=== PATIENT | male | born 1955 | race American Indian/Alaskan Native ===

== ENCOUNTER 2017-12-05 07:50 | Day surgery (SDC) | payer MEDICARE ==
[2017-12-05 08:13] VITALS: BMI 26.9
[2017-12-05] MEDS ORDERED: MethylPREDNISolone Depo 40 mg/ml Inj ONE ×2 (08:16)
[2017-12-05] MEDS ORDERED: Bupivacaine HCl 0.25% PF (10 ml) Inj ONE (08:16)
[2017-12-05] MEDS ORDERED: Iohexol 240 (50 ml) ONE (08:16)
[2017-12-05] MEDS ORDERED: Lactated Ringer's 1,000 ML IV ONE (09:45)
[2017-12-05 11:13] VITALS: RESP 16; TEMP 97.4
--- NOTE | 2017-12-05 15:28 | RAD ---
PROCEDURE: Fluoroscopy pain management procedure HISTORY: LUMBAR RADICULOPATHY COMPARISON: None TECHNIQUE: Standard protocol for this study/examination. FINDINGS: Total fluoroscopic time (continuous mode) utilized during the procedure: 14.3 seconds. IMPRESSION: Submitted images from the current procedure: 6.0.
[2017-12-05 15:46] VITALS: BP 133/95; PULSE 86; O2SAT 99
--- NOTE | 2017-12-06 07:37 | OP ---
PROCEDURE DATE: 12/05/2017 PREOPERATIVE DIAGNOSES: 1. Lumbar radiculopathy. 2. Lumbar herniated disc. 3. Myalgias. POSTOPERATIVE DIAGNOSES: 1. Lumbar radiculopathy. 2. Lumbar herniated disc. 3. Myalgias. PROCEDURE: 1. Bilateral L5-S1 lumbar selective nerve root block. 2. Epidurogram. 3. Trigger point injections. X-RAY: [id number], Fluoroscopy of the spine. ANESTHESIA: MAC/local. SURGEON: Noni Villalobos MD COMPLICATIONS: None. BLOOD LOSS: 2 mL. INDICATION: This patient has intractable back and leg pain that is unresponsive to conservative management. The pain is adversely affecting quality of life and activities of daily living. TECHNIQUE: After comprehensive informed consent was obtained, the risks of the procedure explained and questions answered. The patient understands fully the risks are, but not limited to possible bleeding, infection, headache, nervous tissue injury and worsening of their pain. The patient was placed prone on the operating table in a comfortable position. Confirmation of the procedure to be performed was obtained from the patient. The skin overlying the area to be injected was cleaned in a strict sterile fashion using chlorhexidine. Sterile drapes were placed around the area to be injected. Using the C-arm in the anteroposterior view, the levels to be injected were identified under fluoroscope. Then, the C-arm was obliqued in the coronal plane until the facet joint was delineated approximately 25 degrees. The area to be injected was superficially anesthetized with 3 mL of 1% lidocaine using a 27-gauge, 1.25-inch needle. Under fluoroscopic guidance, a 22-gauge, 3.5-inch short bevel needle was advanced and directed toward the tip of the pars. In the lateral view, ideal placement of the needle was obtained with the tip in the cephalodorsal corner of the neural foramen. In the anteroposterior plane and under continuous fluoroscopy, 1 mL of non-ionic, water-soluble contrast (Omnipaque 180) was injected to visualize the nerve root and make sure there was no vascular uptake. After negative aspiration for blood, 1 mL of preservative-free 0.5% Marcaine in 80 mg of Depo-Medrol was slowly injected at each level. The patient experienced no painful paresthesia during the injection. Epidurogram: The patient underwent transforaminal epidural steroid injection today. The epidural was observed at the level of L4-L5 under AP and lateral fluoroscopic guidance. A 2 mL of Omnipaque 200 contrast was injected that evenly spread from level L3 to S1 level with posterior-anterior dye spread bilaterally at level of L4-L5 and L5-S1. There appeared to be a moderate degree spondylosis at level of L4-L5 and moderate degree of spondylosis at the level of L5-S1 with disc protrusion at the level of L4-L5. The intervertebral disc height at the level of L4-L5 was slightly less than normal and intervertebral disc height at the level of L5-S1 was well maintained. The neural foramen appeared to be patent. Good epidural dye containment from L3-S1 with intervertebral disc protrusion at the level of L4-L5, maintaining less than normal intervertebral disc height at level L4-L5. Spondylosis noted at the level of L4 through S1. Copies of the images are on file. Trigger Point Injections: A 27-gauge needle was used to inject trigger point areas in paralumbar muscles, parathoracic muscles, and upper gluteal muscles. Needle was redirected to sciatic nerve branches. Total volume of 10 mL of 0.25% Marcaine. Intermittent aspiration was done throughout with no heme or CSF aspirated throughout. Patient tolerated procedure well. DISPOSITION: Patient was taken to the recovery room in stable condition. Patient was given instructions to follow up in two weeks and was discharged in stable condition. No events or complications. Noni Villalobos MD
== END 2017-12-05 11:34 | disposition home or self-care (01) ==
LOC: C.SDS 07:50
PROVIDERS: ATTEND Anesthesiology Pain Medicine
DX: M47.817 Spondylosis without myelopathy or radiculopathy, lumbosacral region (principal); M54.16 Radiculopathy, lumbar region; M51.36 Other intervertebral disc degeneration, lumbar region; M51.16 Intervertebral disc disorders with radiculopathy, lumbar region
CPT/HCPCS: 64520; 82948; J1030; J3010; J7120; Q9966

== ENCOUNTER 2018-01-02 07:51 | Day surgery (SDC) | payer MEDICARE ==
[~2018-01-02 07:51] MED LIST: Bupivacaine HCl 0.25% PF (10 ml) Inj ONE; Iohexol 240 (50 ml) ONE; MethylPREDNISolone Depo 40 mg/ml Inj ONE
[2018-01-02] MEDS ORDERED: Propofol 10 mg/ml Inj (20 ML) ONE (09:14)
[2018-01-02] MEDS ORDERED: Midazolam 2 MG/2 ML VIAL ONE (09:15)
--- NOTE | 2018-01-02 10:33 | OP ---
PROCEDURE DATE: PREOPERATIVE DIAGNOSES: 1. Lumbar radiculopathy. 2. Lumbar herniated disc. 3. Myalgias. POSTOPERATIVE DIAGNOSES: 1. Lumbar radiculopathy. 2. Lumbar herniated disc. 3. Myalgias. PROCEDURES: 1. Selective nerve root block level L5-S1, bilateral. 2. Epidurogram. 3. Trigger point injections. X-RAY: [id number], Fluoroscopy of the spine. ANESTHESIA: MAC/local. SURGEON: Noni Villalobos MD. COMPLICATIONS: None. BLOOD LOSS: 2 mL. INDICATION: This patient has intractable back and leg pain that is unresponsive to conservative management. The pain is adversely affecting quality of life and activities of daily living. TECHNIQUE: After comprehensive informed consent was obtained, the risks of the procedure explained and questions answered. The patient understands fully the risks are, but not limited to possible bleeding, infection, headache, nervous tissue injury and worsening of their pain. The patient was placed prone on the operating table in a comfortable position. Confirmation of the procedure to be performed was obtained from the patient. The skin overlying the area to be injected was cleaned in a strict sterile fashion using chlorhexidine. Sterile drapes were placed around the area to be injected. Using the C-arm in the anteroposterior view, the levels to be injected were identified under fluoroscope. Then, the C-arm was obliqued in the coronal plane until the facet joint was delineated approximately 25 degrees. The area to be injected was superficially anesthetized with 3 mL of 1% lidocaine using a 27-gauge, 1.25-inch needle. Under fluoroscopic guidance, a 22-gauge, 3.5-inch short bevel needle was advanced and directed toward the tip of the pars. In the lateral view, ideal placement of the needle was obtained with the tip in the cephalodorsal corner of the neural foramen. In the anteroposterior plane and under continuous fluoroscopy, 1 mL of non-ionic, water-soluble contrast (Omnipaque 180) was injected to visualize the nerve root and make sure there was no vascular uptake. After negative aspiration for blood, 1 mL of preservative-free 0.5% Marcaine in 80 mg of Depo-Medrol was slowly injected at each level. The patient experienced no painful paresthesia during the injection. Epidurogram: The patient underwent transforaminal epidural steroid injection today. The epidural was observed at the level of L4-L5 under AP and lateral fluoroscopic guidance. A 2 mL of Omnipaque 200 contrast was injected that evenly spread from level L3 to S1 level with posterior-anterior dye spread bilaterally at level of L4-L5 and L5-S1. There appeared to be a moderate degree spondylosis at level of L4-L5 and moderate degree of spondylosis at the level of L5-S1 with disc protrusion at the level of L4-L5. The intervertebral disc height at the level of L4-L5 was slightly less than normal and intervertebral disc height at the level of L5-S1 was well maintained. The neural foramen appeared to be patent. Good epidural dye containment from L3-S1 with intervertebral disc protrusion at the level of L4-L5, maintaining less than normal intervertebral disc height at level L4-L5. Spondylosis noted at the level of L4 through S1. Copies of the images are on file. Trigger Point Injections: A 27-gauge needle was used to inject trigger point areas in paralumbar muscles, parathoracic muscles, and upper gluteal muscles. Needle was redirected to sciatic nerve branches. Total volume of 10 mL of 0.25% Marcaine. Intermittent aspiration was done throughout with no heme or CSF aspirated throughout. Patient tolerated procedure well. DISPOSITION: Patient was taken to the recovery room in stable condition. Patient was given instructions to follow up in two weeks and was discharged in stable condition. No events or complications. Noni Villalobos MD
[2018-01-02] MEDS ORDERED: Iohexol 240 (50 ml) ONE (11:54)
[2018-01-02 12:55] VITALS: RESP 15
[2018-01-02 12:57] VITALS: BP 138/84; PULSE 82; TEMP 98; O2SAT 98
--- NOTE | 2018-01-02 13:48 | RAD ---
PROCEDURE: Intraoperative Fluoroscopy. HISTORY: LUMBAR RADICULOPATHY FINDINGS: Fluoroscopic assistance was provided. 9.8 seconds fluoroscopy time utilized during this procedure. Radiation dose = 1.28 mGy. Please refer to the operative report for additional details.
== END 2018-01-02 10:54 | disposition home or self-care (01) ==
LOC: C.SDS 07:51
PROVIDERS: ATTEND Anesthesiology Pain Medicine
DX: M51.17 Intervertebral disc disorders with radiculopathy, lumbosacral region (principal); M47.817 Spondylosis without myelopathy or radiculopathy, lumbosacral region; M51.36 Other intervertebral disc degeneration, lumbar region; M51.16 Intervertebral disc disorders with radiculopathy, lumbar region; Z79.891 Long term (current) use of opiate analgesic; I69.351 Hemiplegia and hemiparesis following cerebral infarction affecting right dominant side; E11.9 Type 2 diabetes mellitus without complications; I10 Essential (primary) hypertension; F19.11 Other psychoactive substance abuse, in remission; F17.210 Nicotine dependence, cigarettes, uncomplicated; M47.812 Spondylosis without myelopathy or radiculopathy, cervical region; M50.20 Other cervical disc displacement, unspecified cervical region; M51.24 Other intervertebral disc displacement, thoracic region; M51.26 Other intervertebral disc displacement, lumbar region; M47.814 Spondylosis without myelopathy or radiculopathy, thoracic region; M51.27 Other intervertebral disc displacement, lumbosacral region
CPT/HCPCS: 20552; 62323; 82948; J1030; J2250; J2704; Q9966

== ENCOUNTER 2018-08-07 07:20 | Day surgery (SDC) | payer MEDICARE ==
[~2018-08-07 07:20] MED LIST changes: -Bupivacaine HCl 0.25% PF (10 ml) Inj ONE; -Iohexol 240 (50 ml) ONE; -MethylPREDNISolone Depo 40 mg/ml Inj ONE; +Sodium Chloride 0.9% 20 ML IV ONE
[2018-08-07] MEDS ORDERED: Bupivacaine 0.75% Inj(30mL) ONE (07:21)
[2018-08-07] MEDS ORDERED: MethylPREDNISolone Depo 40 mg/ml Inj ONE (07:21)
[2018-08-07] MEDS ORDERED: Iohexol 240 (50 ml) ONE (07:21)
[2018-08-07] MEDS ORDERED: Lidocaine Hydrochloride 0 ML INJ ONE (07:21)
[2018-08-07] MEDS ORDERED: Propofol 10 mg/ml Inj (20 ML) ONE (09:34)
[2018-08-07 10:49] VITALS: RESP 18; TEMP 98; O2SAT 100
[2018-08-07 13:19] VITALS: BP 151/93; PULSE 86
--- NOTE | 2018-08-07 14:28 | RAD ---
Date of service: 08/07/2018 PROCEDURE: Intraoperative Fluoroscopy. HISTORY: LUMBAR RADICULOPATHY FINDINGS: Fluoroscopic assistance was provided for lumbar caudal epidural injection. Please refer to the operative report from LISSETTE Tavarez.
--- NOTE | 2018-08-08 06:14 | OP ---
PROCEDURE DATE: 08/07/2018 PREOPERATIVE DIAGNOSES: 1. Lumbar radiculopathy. 2. Lumber herniated disc. POSTOPERATIVE DIAGNOSES: 1. Lumbar radiculopathy. 2. Lumber herniated disc. PROCEDURE: Lumber epidural steroid injection L4. X-RAY: [id number], fluoroscopy of the spine. ANESTHESIA: MAC/local. SURGEON: Noni Villalobos MD COMPLICATIONS: None. BLOOD LOSS: 2 mL. BRIEF HISTORY AND INDICATIONS: The patient with lumbar radiculopathy, radiating down b/l lower extremities. The patient is here for a lumbar epidural steroid injection under fluoroscopic guidance. PROCEDURE IN DETAIL: The patient's chart was reviewed. Informed consent was obtained. The patient was brought back to the procedure room, placed in prone position. Routine monitors were applied. The patient prepped and draped in sterile fashion. The fluoroscopic view of the interlaminar space was taken in AP view. A 27-gauge needle was used to infiltrate the skin subcutaneously with lidocaine 1% at 2 mL. Subsequently, a 20-gauge epidural Tuohy needle was used to advance to the interlaminar space with loss of resistance technique. The needle position was confirmed by AP and lateral views. Omnipaque 180 dye, 1 mL was injected showing good epidurogram. Subsequently, Depo-Medrol 80 mg with 1 mg of 1% lidocaine preservative free and 2 mL of normal saline was injected with intermittent negative aspiration. No heme or CSF was aspirated throughout. No paresthesias were elicited throughout. The patient tolerated the procedure well. Vital signs remained stable. The patient reported reduction in pain post procedure. No sensory or motor deficits were noted. Trigger Point Injections: A 27-gauge needle was used to inject trigger point areas in paralumbar muscles, parathoracic muscles, and upper gluteal muscles. Needle was redirected to sciatic nerve branches. Total volume of 10 mL of 0.25% Marcaine. Intermittent aspiration was done throughout with no heme or CSF aspirated throughout. Patient tolerated procedure well. DISPOSITION: Patient was taken to the recovery room in stable condition. Patient was given instructions to follow up in two weeks and was discharged in stable condition. No events or complications. Noni Villalobos MD
== END 2018-08-07 11:31 | disposition home or self-care (01) ==
LOC: C.OPSURG 07:20 → C.SDS 07:20
PROVIDERS: ATTEND Anesthesiology Pain Medicine
DX: M51.26 Other intervertebral disc displacement, lumbar region (principal); M54.16 Radiculopathy, lumbar region; M47.817 Spondylosis without myelopathy or radiculopathy, lumbosacral region; E11.9 Type 2 diabetes mellitus without complications; I10 Essential (primary) hypertension
CPT/HCPCS: 62323; 82948; J1030; J2704; Q9966

== ENCOUNTER 2018-09-18 09:44 | Day surgery (SDC) | payer MEDICARE ==
[2018-09-18] MEDS ORDERED: Lidocaine Hydrochloride 10 ML INJ ONE (12:08)
[2018-09-18] MEDS ORDERED: Triamcinolone Acetonide 40 mg/mL Inj ONE (12:09)
[2018-09-18] MEDS ORDERED: Bupivacaine 0.75% Inj(30mL) ONE (12:11)
[2018-09-18] MEDS ORDERED: Sodium Chloride 0.9% 0 ML IV ONE (12:13)
[2018-09-18] MEDS ORDERED: methylPREDNISolone Depo 80 mg/ml Inj ONE (12:13)
[2018-09-18] MEDS ORDERED: Midazolam 2 MG/2 ML VIAL ONE (12:15)
[2018-09-18] MEDS ORDERED: Propofol 10 mg/ml Inj (20 ML) ONE (12:16)
[2018-09-18] MEDS ORDERED: Sodium Chloride 0.9% 1,000 ML IV ONE (12:27)
[2018-09-18 12:43] VITALS: O2SAT 100
[2018-09-18 13:41] VITALS: BP 136/88; PULSE 81; RESP 18; TEMP 97.8
--- NOTE | 2018-09-18 14:11 | RAD ---
Date of service: 09/18/2018 PROCEDURE: Intraoperative Fluoroscopy. HISTORY: LUMBAR RADICULOPATHY FINDINGS: Fluoroscopic assistance was provided for pain management lumbar region. Please refer to the operative report from LISSETTE Tavarez. Total fluoroscopic time (continuous mode) utilized during the procedure 7.5 seconds. Total exam DLP: 2.44 (mGy).
--- NOTE | 2018-09-19 06:41 | OP ---
PROCEDURE DATE: 09/18/2018 PREOPERATIVE DIAGNOSIS: Lumbar radiculopathy, lumbar herniated disc. POSTOPERATIVE DIAGNOSIS: Lumbar radiculopathy, lumbar herniated disc. PROCEDURE: Caudal epidural steroid injection under fluoroscopic guidance. SURGEON: Noni Villalobos MD. TYPE OF ANESTHESIA: MAC/local sedation. COMPLICATIONS: None. BLOOD LOSS: None. BRIEF HISTORY AND INDICATIONS: The patient has lumbar radiculopathy, failed back syndrome. The patient has radicular pain bilateral feet. The patient here for caudal epidural steroid injection under fluoroscopic guidance. DESCRIPTION OF PROCEDURE: The patient's chart was reviewed. Informed consent was obtained. The patient was brought back to the procedure room, placed in prone position. Routine monitors were applied. The patient was prepped and draped in a sterile fashion. A fluoroscopic view of the sacral hiatus was taken in lateral view. A #27 gauge needle was used to infiltrate the skin. Subsequently, lidocaine 1% was used to . Subsequently, a #20 gauge epidural Tuohy needle was used to advance into the caudal epidural space. The needle position was confirmed on AP and lateral views. showing good epidurogram. Subsequently, Depo-Medrol 80 mg with 5 mL of 0.5% Marcaine preservative-free and 10 mL of normal saline was injected with intermittent negative aspiration. No heme or CSF was aspirated throughout. No paresthesias were elicited throughout. Needle was removed. The patient tolerated the procedure well. Vital signs remained stable. The patient reported reduction in pain post procedure. No sensory or motor deficits noted. DISPOSITION: The patient was taken back to recovery room in stable condition. The patient was given instructions to follow up in two weeks and was discharged in stable condition. No events or complications. Noni Villalobos MD
== END 2018-09-18 13:40 | disposition home or self-care (01) ==
LOC: C.SDS 09:44
PROVIDERS: ATTEND Anesthesiology Pain Medicine
DX: M47.817 Spondylosis without myelopathy or radiculopathy, lumbosacral region (principal); M51.26 Other intervertebral disc displacement, lumbar region; M54.15 Radiculopathy, thoracolumbar region; M51.16 Intervertebral disc disorders with radiculopathy, lumbar region
CPT/HCPCS: 62323; 82948; J1040; J2250; J2704; J7030